=== PATIENT | male | born 1995 | race Caucasian/White ===

== ENCOUNTER 2017-07-24 15:18 | Emergency (ER) | payer SELFPAY ==
[~2017-07-24] VITALS: Ht 167.6 cm; Wt 72.6 kg
--- NOTE | 2017-07-24 15:42 | ED HAND/WRIST INJURY COMPLAINT ---
History of Present Illness General Chief Complaint: Hand or Wrist Injury Stated Complaint: PT CUT HIS LEFT HAND WITH THE SAW AT WORK Source: patient, old records Exam Limitations: no limitations Vital Signs & Intake/Output Vital Signs & Intake/Output Vital Signs Date Time Temp Pulse Resp B/P B/P Pulse O2 O2 Flow FiO2 Mean Ox Delivery Rate 07/24 170 98.0 80 16 133/74 98 Room Air 07/24 1707 Room Air 07/24 1527 97.0 84 18 154/82 97 Room Air Allergies Coded Allergies: No Known Allergies (07/24/17) Reconcile Medications Cephalexin (Keflex) 500 MG CAPSULE 1 CAP PO TID PPX Tylenol With Codeine (Tylenol With Codeine #3 Tablet) 300 MG-30 MG TABLET 1 TAB PO BIDP PRN PAIN Triage Note: PT STATES HE CUT HIS LEFT HAND WITH A CIRCULAR SAW AT WORK. PT NOTED TO HAVE CUT TO LEFT WRIST AND THUMB. PT DECLINED PAIN MED IN TRIAGE. Triage Nurses Notes Reviewed? yes Occurred: just prior to arrival Duration: hour(s): (1), constant Timing: recent history Injury Environment: work Severity: moderate Severity Numbers: 6 Pain/Injury Location: Left: Wrist, 1st finger. Context: laceration Method of Injury: laceration No Modifying Factors: none Associated Symptoms: none HPI: 21-year-old male presents to ER for evaluation status post sustaining laceration to his left wrist and left first finger on a circular saw at work just prior to arrival. He denies any numbness or tingling or difficulty with range motion of his wrist or fingers no other injury. His last tetanus is unknown. He denies any difficulty with range of motion. He has not taken anything for his symptoms and is declining anything for pain complaining of [id number] aching throbbing pain at this time (Vega Watts) Past History Travel History Traveled to [place] past 21 day No Medical History Any Pertinent Medical History? none Surgical History Surgical History: none Psychosocial History What is your primary language Japanese Tobacco Use: Current Daily Use Daily Tobacco Use Amount/Type: => 5 Cigarettes daily ETOH Use: occasional use Illicit Drug Use: denies illicit drug use Family History Hx Contributory? No (Vega Watts) Review of Systems Review of Systems Constitutional: Reports: see HPI. Comments Review of systems: See HPI, All other systems negative. Constitutional, no chills no fever, HEENT: no sore throat no congestion Cardiovascular: No chest pain Skin: no rashes, no change in skin Respiratory: no cough GI: No nausea no vomiting, no diarrhea Muscle skeletal: SEE HPI Neurologic: , no headache Heme/endocrine: No bruising (Chente FLORES,Vega) Physical Exam Physical Exam General Appearance: well developed/nourished, no apparent distress, alert, awake Hand Left: 1st finger Hand Right: normal inspection Comments: Well-developed well-nourished patient in no apparent distress. HEENT: Atraumatic, extraocular motion intact Neck: Supple, FROM Back: FROM Respiratory: No respiratory distress. Patient speaking in full complete sentences Shoulder: Atraumatic/Stable. FROM . Elbow: Atraumatic/stable. FROM. No laxity Upper arm/Forearm: Atraumatic. Nontender. 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 Sensation noted to all fingers, there is active bleeding no visualized tendon injury no visualized foreign body FROM Pulses: Normal/equal radial pulses bilaterally. Brisk cap refill Lower Extremities: full range of motion Neuro: awake, alert, and oriented to person, place and time. There were no obvious focal neurologic abnormalities. Skin: Warm & dry;No appreciable rash on exposed skin Psych: Mood affect normal, normal memory normal judgment. Diagram Hands Front 1) Laceration as described Hands Back 1) Laceration as described (Vega Watts) Progress Differential Diagnosis: compartment syndrome, dislocation, fracture, sprain, TENDON INJURY Plan of Care: Current Medications Sig/Rachel Start time Last Medication Dose Stop Time Status Admin Tetanus/Diphtheria 0.5 ML ONCE ONE 07/24 1644 UNVr Toxoids Adsorbed 07/24 1645 (Decavac) Diagnostic Imaging: Viewed by Me: Radiology Read. Discussed w/RAD: Radiology Read. Radiology Impression: PATIENT: NILA LEE PRESENT AGE: 21 PATIENT ACCOUNT NO: [id number] : 95 LOCATION: [facility] ORDERING PHYSICIAN: Vega FLORES SERVICE DATE: 05/01/18-1529 EXAM TYPE: RAD - XRY-HAND, LEFT EXAMINATION: XR HAND, LEFT CLINICAL INFORMATION: Laceration and soft tissue injury. COMPARISON: None TECHNIQUE: PA, lateral, and oblique views of the left hand. FINDINGS: There is a bandage over a portion of the first digit. Laceration injury and soft tissue swelling partially visualized. No radiopaque foreign bodies are clearly seen in the soft tissues. No osseous injury is seen. The joint spaces are maintained. There are no subluxations. IMPRESSION: Partially visualized soft tissue injury at the first digit, somewhat obscured by bandage. No acute osseous abnormality or radiopaque foreign body. DICTATED BY: Peter Rausch MD DATE/TIME DICTATED:07/24/171607 SALES MARKET LEADER:[place] DATE/ TIME TRANSCRIBED:07/24/171607 CONFIDENTIAL, DO NOT COPY WITHOUT APPROPRIATE AUTHORIZATION. <Electronically signed in Other Vendor System> SIGNED BY: Peter Rausch MD 07/24/17 1613 (Vega Watts) Departure Departure Time of Disposition: 1633 Disposition: HOME OR SELF CARE Condition: Stable Clinical Impression Primary Impression: Finger laceration Secondary Impressions: Wrist laceration Referrals: Unknown (PCP/Family) Additional Instructions: Keep dressing in place that was placed here in the emergency room for 2 full days. Keflex as directed for prophylaxis. Tylenol with Codeine for breakthrough pain this is a narcotic and will make you drowsy no driving or drinking alcohol while taking. These were sent to the [facility]. Keep area clean and covered as discussed, bacitracin daily. Return to ER in 7-10 days for suture removal. Please understand that foreign bodies such as glass or wood may not be visible to the naked eye or on plain x-rays. If the wound becomes red, swollen, increasingly more painful or if there is any drainage from the wound, please have it reevaluated by a physician for the possibility of a retained foreign body. Departure Forms: Customer Survey General Discharge Information Prescriptions: Current Visit Scripts Tylenol With Codeine (Tylenol With Codeine #3 Tablet) 1 TAB PO BIDP PRN PAIN #8 TAB Cephalexin (Keflex) 1 CAP PO TID #15 CAP (Vega Watts) PA/SALES SERVICE ROUTE MANAGER Co-Sign Statement Statement: ED Attending supervision documentation- I saw and evaluated the patient. I have also reviewed all the pertinent lab results and diagnostic results. I agree with the findings and the plan of care as documented in the PA's/SALES SERVICE ROUTE MANAGER's documentation. x I have reviewed the ED Record and agree with the PA's/SALES SERVICE ROUTE MANAGER's documentation. [] Additions or exceptions (if any) to the PAs/SALES SERVICE ROUTE MANAGER's note and plan are summarized below: [] (Dayday FARMER,Jose Cruz) Procedures Laceration/Wound Repair Laceration/Wound Repair: 1 Wound Location: upper extremity Wound's Depth, Shape: linear, superficial Wound Length (cm): 3 Wound Explored: clean, no foreign body removed, irrigated extensively Irrigated w/ Saline (ccs): 300 Betadine Prep? Yes Anesthesia: 1% lidocaine Volume Anesthetic (ccs): 8 Wound Repaired With: sutures, Steri-strips Suture Size/Type: 3:0 Number of Sutures: 8 Layer Closure? No Sterile Dressing Applied: Yes Date of Last Tetanus: 07/24/17 Laceration/Wound Repair: 2 Wound Location: l 1st finger Wound's Depth, Shape: linear, superficial Wound Length (cm): 1 Wound Explored: clean, no foreign body removed, irrigated extensively Betadine Prep? Yes Anesthesia: 1% lidocaine Volume Anesthetic (ccs): 3 Wound Repaired With: sutures, Steri-strips Suture Size/Type: 3:0 Number of Sutures: 2 (Vega Watts)
--- NOTE | 2017-07-24 16:13 | RADIOLOGY REPORT ---
EXAMINATION: XR HAND, LEFT CLINICAL INFORMATION: Laceration and soft tissue injury. COMPARISON: None TECHNIQUE: PA, lateral, and oblique views of the left hand. FINDINGS: There is a bandage over a portion of the first digit. Laceration injury and soft tissue swelling partially visualized. No radiopaque foreign bodies are clearly seen in the soft tissues. No osseous injury is seen. The joint spaces are maintained. There are no subluxations. IMPRESSION: Partially visualized soft tissue injury at the first digit, somewhat obscured by bandage. No acute osseous abnormality or radiopaque foreign body.
[2017-07-24] MEDS ORDERED: KEFLEX500 M1 PO (16:36)
[2017-07-24] MEDS ORDERED: TYLENOL WITH C1 EACH PO (16:36)
[2017-07-24 17:08] VITALS: BP 133/74
== END 2017-07-24 17:08 ==
LOC: ERH 15:18
DX: S61.012A Laceration without foreign body of left thumb without damage to nail, initial encounter (principal); S61.512A Laceration without foreign body of left wrist, initial encounter; W27.0XXA Contact with workbench tool, initial encounter; Y93.9 Activity, unspecified; Y92.9 Unspecified place or not applicable
CPT/HCPCS: 73130-LT; 90471; 90714; J2001

== ENCOUNTER 2017-08-04 14:46 | Emergency (ER) | payer SELFPAY ==
[~2017-08-04] VITALS: Ht 172.7 cm; Wt 75.8 kg
[~2017-08-04 14:46] MED LIST: KEFLEX500 M1 PO; TYLENOL WITH C1 EACH PO
[2017-08-04 15:02] VITALS: BP 132/85
--- NOTE | 2017-08-04 15:12 | ED ANIMAL BITE/WOUND CHECK ---
History of Present Illness General Chief Complaint: Suture Removal/Wound Recheck Stated Complaint: HERE FOR SUTURE REMOVAL Source: patient Exam Limitations: no limitations Vital Signs & Intake/Output Vital Signs & Intake/Output Vital Signs Date Time Temp Pulse Resp B/P B/P Pulse O2 O2 Flow FiO2 Mean Ox Delivery Rate 08/04 1502 97.9 87 18 132/85 99 Room Air Room Air Allergies Coded Allergies: No Known Allergies (07/24/17) Reconcile Medications Cephalexin (Keflex) 500 MG CAPSULE 1 CAP PO TID PPX Tylenol With Codeine (Tylenol With Codeine #3 Tablet) 300 MG-30 MG TABLET 1 TAB PO BIDP PRN PAIN Triage Note: PT TO ED FOR SUTURE REMOVAL (10) TO LEFT HAND. Triage Nurses Notes Reviewed? yes Onset: Abrupt Duration: day(s): Timing: recent history Injury Environment: home No Modifying Factors: none HPI: 21-year-old male comes into the emergency room for suture removal to left hand/ wrist. Denies any redness on discharge fever chills. Denies any other associated symptoms. Past History Travel History Traveled to [place] past 21 day No Medical History Any Pertinent Medical History? 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 No Review of Systems Review of Systems Constitutional: Reports: no symptoms. EENTM: Reports: no symptoms. Respiratory: Reports: no symptoms. Cardiovascular: Reports: no symptoms. GI: Reports: no symptoms. Genitourinary: Reports: no symptoms. Musculoskeletal: Reports: no symptoms. Skin: Reports: see HPI. Neurological/Psychological: Reports: no symptoms. Hematologic/Endocrine: Reports: no symptoms. Immunologic/Allergic: Reports: no symptoms. All Other Systems: Reviewed and Negative Physical Exam Physical Exam General Appearance: well developed/nourished, mild distress Head: atraumatic Eyes: Bilateral: normal appearance. Ears, Nose, Throat: normal ENT inspection, hearing grossly normal Neck: normal inspection Respiratory: no respiratory distress Back: normal inspection Extremities: sutures left wrist, scabbing, no redness, no discharge Neurologic/Psych: awake, alert, oriented x 3, normal mood/affect Skin: intact, normal color, warm/dry Progress Differential Diagnosis: abscess, cellulitis, joint infection, tenosysnovitis Plan of Care: 08/04/2017 8:27:56 PM All sutures removed. Departure Departure Disposition: HOME OR SELF CARE Condition: Stable Clinical Impression Primary Impression: Visit for suture removal Referrals: Unknown (PCP/Family) Additional Instructions: Return if any other concerns worsening symptoms. Please go over all results of today's visit with your primary care doctor. Contact your primary care doctor to let them know you were here in the emergency room. There may be nonspecific findings which may not be related to your visit today here in the emergency room but may require further evaluation and chronic monitoring by your primary care doctor. If you had a laceration today the chance of foreign body always remains. You should follow-up with your primary care doctor for recheck in 3-5 days for a wound check. If you had an x-ray done there is a chance that a fracture could have been missed on initial read and you should follow-up with your primary care doctor for repeat x-rays if symptoms persist. If your blood pressure was elevated here in the emergency room please have rechecked by [facility] primary care doctor within the next 48. If you were prescribed a narcotic here in the emergency room or any type of controlled substances you're not allowed to drive while taking this medication or operate any type of heavy machinery. Narcotics can make you feel lightheaded dizziness nausea and can cause constipation. You may need to machine pecan picker a stool softener. Thank you for choosing [facility] emergency room. Please return to the emergency room immediately if you have any other concerns worsening of symptoms. Departure Forms: Customer Survey General Discharge Information
== END 2017-08-04 15:17 ==
LOC: ERH 14:46
DX: Z48.02 Encounter for removal of sutures (principal)